=== PATIENT | male | born 1960 | race Caucasian/White ===

== ENCOUNTER → 2016-11-30 | Outpatient (CLI) | payer OTHER | LOC: FIMAGING 11:35 | PROVIDERS: ATTEND Physical Medicine & Rehabilitation | DX: M54.5 Low back pain (principal); M53.3 Sacrococcygeal disorders, not elsewhere classified | CPT/HCPCS: A9503 ==

== ENCOUNTER 2016-12-15 07:35 | Day surgery (SDC) | payer OTHER ==
[2016-12-15] MEDS ORDERED: ASPIRIN EC 325 MG TAB PO ONE (07:40)
[2016-12-15] MEDS ORDERED: DIAZEPAM 5 MG TAB PO ONE (07:40)
[2016-12-15] MEDS ORDERED: diphenhydrAMINE 25 MG CAP PO ONE (07:40)
[2016-12-15] MEDS ORDERED: FAMOTIDINE 20 MG TAB PO ONE (07:40)
[2016-12-15] MEDS ORDERED: NS 1,000 ML IV ONE (07:40)
--- NOTE | 2016-12-15 07:55 | CPEKG ---
Heart Rate: 59 RR Interval: 1017 P-R Interval: 204 QRSD Interval: 94 QT Interval: 416 QTC Interval: 413 P [place]: 64 QRS [place]: 38 T Wave [place]: 54 EKG Severity - NORMAL ECG - EKG Impression: SINUS RHYTHM Electronically Signed By: Jennifer Rowan 17-Dec-2016 06:50:11
[2016-12-15 08:08] LABS: % IMMATURE GRANULYOCYTES 0.4 % (0.0-1.1); ABSOLUTE IMMATURE GRANULOCYTES 0.02 10^3/uL (0.00-0.10); ADD DIFF? NO; ADD MORPH? NO; ADD SCAN? NO; ATYPICAL LYMPHOCYTE FLAG 10 (0-99); FRAGMENT RBC FLAG 0 (0-99); HEMATOCRIT 43.4 % (40.0-51.0); HEMOGLOBIN 15.2 g/dL (13.7-17.5); LEFT SHIFT FLG 0 (0-99); LIPEMIA HEMOLYSIS FLAG 90 (0-99); MEAN CELL HEMOGLOBIN 32.3 pg (27.9-34.1); MEAN CELL VOLUME 92.1 fL (81.5-99.8); MEAN PLATELET VOLUME 8.8 fL (8.7-11.7); PLATELET CLUMPS FLAG 0 (0-99); PLATELET COUNT 250 10^3/uL (150-400); RED BLOOD CELL COUNT 4.71 10^6/uL (4.40-6.38); RED CELL DISTRIBUTION WIDTH 12.6 % (11.5-15.2)
[2016-12-15 08:24] LABS: INR 0.98 (0.83-1.16); PROTIME(PATIENT) 12.9 SEC (12.0-15.0)
[2016-12-15 08:29] LABS: ANION GAP 12 mEq/L (8-16); CALCIUM 9.4 mg/dL (8.5-10.4); CARBON DIOXIDE 24 mEq/l (22-31); CHLORIDE 104 mEq/L (97-110); CHOLESTEROL 191 mg/dL (140-220); CHOLESTEROL/HDL RATIO 2.69 RATIO (1.00-4.97); GLOMERULAR FILTRATION RATE > 60; GLUCOSE 93 mg/dL (70-100); HIGH DENSITY LIPOPROTEIN 71 mg/dL (40-65); LDL/HDL RATIO 1.38 RATIO (1.00-3.64); LOW DENSITY LIPOPROTEIN 98 mg/dL (80-100); MAGNESIUM 2.1 mg/dL (1.6-2.3); NON-HIGH DENSITY LIPOPROTEIN 120 mg/dL (90-129); POTASSIUM 4.3 mEq/L (3.5-5.2); SODIUM 140 mEq/L (134-144); TRIGLYCERIDE 110 mg/dL (40-150); VERY LOW DENSITY LIPOPROTEINS 22 mg/dL (8-25)
--- NOTE | 2016-12-15 08:48 | PDPROPOC ---
Sedation Plan of Care Sedation Plan of Care: vital signs stable, mental status noted, patient educated of risks, benefits, alternatives, patient can tolerate sedation ASA Classification: ASA 1 Planned drugs: fentanyl, midazolam Mallampati Score: Class 1 Mallampati Reference Image: Patient passed 3-3-2 rule?: Yes
--- NOTE | 2016-12-15 08:48 | PDGENHP ---
History and Physical History and Physical: No changes to physical exam. Patient seen in clinic recently. Risks and benefits were readdressed with patient and . Consents were signed.
[2016-12-15] MEDS ORDERED: fentaNYL 100 MCG/2 ML INJ ONE (09:03)
[2016-12-15] MEDS ORDERED: LIDOCAINE 1% 300 MG/30 ML SDV ONE (09:03)
[2016-12-15] MEDS ORDERED: MIDAZOLAM 2 MG/2 ML VIAL ONE ×2 (09:03)
[2016-12-15] MEDS ORDERED: IOPAMIDOL (ISOVUE-370) 150 ML BTL IV ONE (09:04)
--- NOTE | 2016-12-15 10:00 | PDDXCAT ---
Diagnostic Cath Note - . 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 no luminal irregularities noted LAD: Medium diameter vessel with three diagonals (none of which is larger than the others). Between D2 and D3 there is 40-50% stenosis noted. LCX: Medium diameter vessel with one principal OM. Ostial/proximal OM with 50% stenosis noted. Remainder of the LCX system without luminal irregularities RCA: large, dominant vessel with supply to the PDA and DEO. no clear luminal irregularities noted. EDP: 12 LVEF: 65 Wall motion: normal Complications: none Estimated blood loss: <50ml Closure method: Angioseal Assessment: 56 y/o male with strong family history, HTN, and HLP, with complaints of chest pains. Non critical CAD was noted to the mid LAD and the ostium/proximal principal OM. normal LVEF. Plan: Aggressive medical management is recommended. Intervention: none
== END 2016-12-15 14:13 | disposition home or self-care (01) ==
LOC: FCATH 07:35
PROVIDERS: ATTEND Internal Medicine Cardiovascular Disease
PROC: 4A023N7 Measurement of Cardiac Sampling and Pressure, Left Heart, Percutaneous Approach (ICD-10-PCS; principal; 2016-12-15)
PROC: B2111ZZ Fluoroscopy of Multiple Coronary Arteries using Low Osmolar Contrast (ICD-10-PCS; principal; 2016-12-15)
PROC: B2151ZZ Fluoroscopy of Left Heart using Low Osmolar Contrast (ICD-10-PCS; principal; 2016-12-15)
DX: R07.9 Chest pain, unspecified (principal); I25.110 Atherosclerotic heart disease of native coronary artery with unstable angina pectoris; I10 Essential (primary) hypertension; E78.5 Hyperlipidemia, unspecified; Z82.49 Family history of ischemic heart disease and other diseases of the circulatory system; Z98.1 Arthrodesis status
CPT/HCPCS: C1760; J1644; J2250; J3010; Q9967

== ENCOUNTER → 2017-08-04 | Outpatient (CLI) | payer OTHER ==
[~2017-08-04] MED LIST: GADOBUTROL 10 ML VIAL IVP ONE
== END ==
LOC: FIMAGING 15:19
PROVIDERS: ATTEND Physical Medicine & Rehabilitation
DX: Z09 Encounter for follow-up examination after completed treatment for conditions other than malignant neoplasm (principal); M51.36 Other intervertebral disc degeneration, lumbar region; Z98.890 Other specified postprocedural states
CPT/HCPCS: A9585

== ENCOUNTER → 2018-01-18 | Outpatient (CLI) | payer OTHER ==
[~2018-01-18] MED LIST changes: -GADOBUTROL 10 ML VIAL IVP ONE; +GADOBUTROL 7.5 ML VIAL IVP ONE; +IOPAMIDOL (ISOVUE 370) 100 ML BTL IV ONE; +LIDOCAINE 1% 300 MG/30 ML SDV ONE; +ROPIVACAINE HCL 150 MG/30 ML INJ ONE
== END ==
LOC: FIMAGING 10:29
PROVIDERS: ATTEND Physical Medicine & Rehabilitation
DX: M16.11 Unilateral primary osteoarthritis, right hip (principal)
CPT/HCPCS: A9585; J2795; Q9967

== ENCOUNTER → 2018-03-15 | Outpatient (CLI) | payer OTHER ==
[~2018-03-15] MED LIST changes: -GADOBUTROL 7.5 ML VIAL IVP ONE; -LIDOCAINE 1% 300 MG/30 ML SDV ONE; -ROPIVACAINE HCL 150 MG/30 ML INJ ONE
== END ==
LOC: CIMAGING 14:17
DX: M47.896 Other spondylosis, lumbar region (principal)
CPT/HCPCS: Q9967

== ENCOUNTER → 2018-04-26 | Outpatient (CLI) | payer OTHER | LOC: FIMAGING 09:20 | PROVIDERS: ATTEND Anesthesiology Pain Medicine | DX: M25.511 Pain in right shoulder (principal) ==

== ENCOUNTER → 2018-04-27 | Outpatient (CLI) | payer OTHER | LOC: FIMAGING 13:31 | PROVIDERS: ATTEND Anesthesiology Pain Medicine | DX: M25.511 Pain in right shoulder (principal); S46.911A Strain of unspecified muscle, fascia and tendon at shoulder and upper arm level, right arm, initial encounter ==

== ENCOUNTER → 2018-07-31 | Outpatient (CLI) | payer OTHER | LOC: BRMIMAGING 15:06 | DX: R05 Cough (principal); J40 Bronchitis, not specified as acute or chronic | CPT/HCPCS: 71046-PO ==